=== PATIENT | male | born 1985 | race Two or more races ===

== ENCOUNTER 2023-08-17 09:04 | Emergency (ER) | payer OTHER ==
[2023-08-17 09:12] VITALS: BP 131/85; RESP 18; TEMP 98.3; BMI 28.1
[2023-08-17] MEDS ORDERED: IBUPROFEN 600 MG TABLET (FP) PO ONE ×2 (10:34→10:39)
[2023-08-17 10:56] VITALS: PULSE 65
== END 2023-08-17 10:58 | disposition home or self-care (01) ==
LOC: JERFT 09:04
DX: M54.6 Pain in thoracic spine (principal); M54.50 Low back pain, unspecified; V49.40XA Driver injured in collision with unspecified motor vehicles in traffic accident, initial encounter; Y92.410 Unspecified street and highway as the place of occurrence of the external cause
CPT/HCPCS: 99283-25